=== PATIENT | male | born 1950 | race Caucasian/White ===

== ENCOUNTER 2021-04-10 15:24 | Emergency (ER) | payer MEDICARE, OTHER ==
[2021-04-10 16:55] LABS: ANION GAP 8.9 meq/L (7-15); CHLORIDE,CL 105 mmol/L (98-107); SODIUM,NA 144 mmol/L (136-145)
[2021-04-10] MEDS: Nitroglycerin 0.4 MG Tab.SL SL ONE (17:15)
== END 2021-04-10 17:35 | disposition left against medical advice (07) ==
LOC: LL.ED 15:24
DX: R07.9 Chest pain, unspecified (principal); R06.02 Shortness of breath; R79.89 Other specified abnormal findings of blood chemistry
CPT/HCPCS: 36415; 71046; 80053; 83605; 83735; 83880; 84484; 85025; 85379; 85610; 93005; 99285; A9270